=== PATIENT | female | born 1930 | race Caucasian/White ===

== ENCOUNTER 2017-08-28 14:07 | Emergency (ER) | payer MEDICARE ==
[~2017-08-28 14:07] MED LIST: ASPI81TA44 PO; CHOL20002 PO; FISH1CAP PO; MULT-658 PO; VALS80TA3 PO; WARF4TAB7 PO
--- NOTE | 2017-08-28 15:14 | EKG ---
[address] [address] Test Date: 2017-08-28 Test Time: 15:09:33 Pat Name: AKHIL HDEZ Department: Room: Gender: F Windows Admin: ROBERT : 1930 Requested By: LOLA LEAL Order Number: [id number] Reading MD: Measurements Intervals [place] Rate: 78 P: MS: QRS: 52 QRSD: 80 T: 41 QT: 388 QTc: 446 Interpretive Statements IRREGULAR RHYTHM, NO P-WAVE FOUND NO SPECIFIC ECG ABNORMALITIES RI6.01 Unconfirmed report No previous ECG available for comparison
--- NOTE | 2017-08-28 15:21 | RAD ---
Indication: Vomiting and abdominal pain. Time of exam 1513 hours. The heart appears to be significantly enlarged. Lungs are clear of acute infiltrates. The pulmonary vascularity is normal. No effusion or pneumothorax is seen. Impression: Cardiomegaly. No other significant abnormality is detected.
--- NOTE | 2017-08-28 15:24 | RAD ---
CT scan of the head without contrast 08/28/2017 Clinical History: Blurred vision.. Technique: Unenhanced, contiguous, 5 mm axial sections were obtained through the head. One or more of the following individualized dose reduction techniques were utilized for this study: 1. Automated exposure control. 2. Adjustment of the mA and/or kV according to patient size. 3. Use of iterative reconstruction technique. Findings: No previous studies are available for comparison. There is generalized parenchymal atrophy. Small scattered areas of decreased attenuation are seen within the periventricular and subcortical white matter of both cerebral hemispheres consistent with areas of small vessel ischemic disease. No acute parenchymal abnormality is seen. No extra-axial fluid collection is noted. Impression: No acute intracranial abnormality is seen.
[2017-08-28 15:56] LABS: BASO # 0.1 x10^3/uL (0.0-0.2); BASO % 1 % (0-3); EOS # 0.3 x10^3/uL (0.0-0.7); EOS % 5 % (0-3); HEMATOCRIT 39.2 % (36.0-47.0); HEMOGLOBIN 13.3 g/dL (12.0-15.5); LYMPH # 1.5 x10^3/uL (1.0-4.8); LYMPH % 24 % (24-48); MEAN CORPUSCULAR HEMOGLOBIN 32 pg (25-35); MEAN CORPUSCULAR HGB CONC 34 g/dL (31-37); MEAN CORPUSCULAR VOLUME 94 fL (79-100); MONO # 0.7 x10^3/uL (0.0-1.1); MONO % 11 % (0-9); NEUT # 3.7 x10^3uL (1.8-7.7); NEUT % 59 % (31-73); PLATELET COUNT 161 x10^3/uL (140-400); RED BLOOD COUNT 4.16 x10^6/uL (3.50-5.40); RED CELL DISTRIBUTION WIDTH 14.5 % (11.5-14.5); WHITE BLOOD COUNT 6.3 x10^3/uL (4.0-11.0)
[2017-08-28 16:10] LABS: ALBUMIN 3.4 g/dL (3.4-5.0); ALBUMIN/GLOBULIN RATIO 0.8 (1.0-1.7); CALCIUM 9.5 mg/dL (8.5-10.1); CREATININE 0.8 mg/dL (0.6-1.0); GFR 67.8; POTASSIUM 4.7 mmol/L (3.5-5.1); TOTAL BILIRUBIN 0.5 mg/dL (0.2-1.0); TOTAL PROTEIN 7.6 g/dL (6.4-8.2)
[2017-08-28 16:28] LABS: BILIRUBIN,URINE NEG (NEG); CLARITY,URINE CLEAR; COLOR,URINE YELLOW; GLUCOSE,URINE NEG (NEG)
[2017-08-28 16:29] LABS: BACTERIA,URINE 0 /HPF (0-FEW); NITRITE,URINE NEG (NEG); SQUAMOUS EPITHELIAL CELL,UR FEW /LPF; UROBILINOGEN,URINE 0.2 mg/dL (0.2 mg/dL)
--- NOTE | 2017-08-28 16:40 | PHYS DOC ---
Past History Past Medical History: A-Fib, Hypertension Past Surgical History: No Surgical History Smoking: Non-smoker Alcohol Use: None Drug Use: None Adult General Chief Complaint Chief Complaint: VISION PROBLEM HPI HPI 87-year-old female patient with history of atrial fibrillation on Coumadin complaining of sudden onset of seeing black spots in front of both of her eyes at 1345 intermittently that last about 50 minutes and resolved at arrival to ER. Patient denies headache, nausea, focal neuro deficit, fever and chills. Patient states she had the same problem 2 years ago and was told that it was related to her atrial fibrillation. Patient was treated recently for UTI and supposed to seen by her primary care physician today for repeat urine test. Review of Systems Review of Systems Constitutional: Denies fever or chills [] Eyes: Denies change in visual acuity, redness, or eye pain [] HENT: Denies nasal congestion or sore throat [] Respiratory: Denies cough or shortness of breath [] Cardiovascular: No additional information not addressed in HPI [] GI: Denies abdominal pain, nausea, vomiting, bloody stools or diarrhea [] : Denies dysuria or hematuria [] Musculoskeletal: Denies back pain or joint pain [] Integument: Denies rash or skin lesions [] Neurologic: Denies headache, focal weakness or sensory changes [] Endocrine: Denies polyuria or polydipsia [] All other systems were reviewed and found to be within normal limits, except as documented in this note. Allergies Allergies Allergies Coded Allergies Type Severity Reaction Last Updated Verified No Known Drug Allergies 05/21/14 No Physical Exam Physical Exam Constitutional: Well developed, well nourished, no acute distress, non-toxic appearance. [] HENT: Normocephalic, atraumatic, bilateral external ears normal, oropharynx moist, no oral exudates, nose normal. [] Eyes: PERRLA, EOMI, conjunctiva normal, no discharge. [] Neck: Normal range of motion, no tenderness, supple, no stridor. [] Cardiovascular:Irregularly irregular, no murmur [] Lungs & Thorax: Bilateral breath sounds clear to auscultation [] Abdomen: Bowel sounds normal, soft, no tenderness, no masses, no pulsatile masses. [] Skin: Warm, dry, no erythema, no rash. [] Back: No tenderness, no CVA tenderness. [] Extremities: No tenderness, no cyanosis, no clubbing, ROM intact, no edema. [] Neurologic: Alert and oriented X 3, normal motor function, normal sensory function, no focal deficits noted. [] Psychologic: Affect normal, judgement normal, mood normal. [] Current Patient Data Lab Results Laboratory Tests Test 08/28/17 15:00 White Blood Count 6.3 x10^3/uL (4.0-11.0) Red Blood Count 4.16 x10^6/uL (3.50-5.40) Hemoglobin 13.3 g/dL (12.0-15.5) Hematocrit 39.2 % (36.0-47.0) Mean Corpuscular Volume 94 fL (79-100) Mean Corpuscular Hemoglobin 32 pg (25-35) Mean Corpuscular Hemoglobin Concent 34 g/dL (31-37) Red Cell Distribution Width 14.5 % (11.5-14.5) Platelet Count 161 x10^3/uL (140-400) Neutrophils (%) (Auto) 59 % (31-73) Lymphocytes (%) (Auto) 24 % (24-48) Monocytes (%) (Auto) 11 % (0-9) H Eosinophils (%) (Auto) 5 % (0-3) H Basophils (%) (Auto) 1 % (0-3) Neutrophils # (Auto) 3.7 x10^3uL (1.8-7.7) Lymphocytes # (Auto) 1.5 x10^3/uL (1.0-4.8) Monocytes # (Auto) 0.7 x10^3/uL (0.0-1.1) Eosinophils # (Auto) 0.3 x10^3/uL (0.0-0.7) Basophils # (Auto) 0.1 x10^3/uL (0.0-0.2) Sodium Level 142 mmol/L (136-145) Potassium Level 4.7 mmol/L (3.5-5.1) Chloride Level 104 mmol/L (98-107) Carbon Dioxide Level 30 mmol/L (21-32) Anion Gap 8 (6-14) Blood Urea Nitrogen 21 mg/dL (7-20) H Creatinine 0.8 mg/dL (0.6-1.0) Estimated GFR (Cockcroft-Gault) 67.8 BUN/Creatinine Ratio 26 (6-20) H Glucose Level 85 mg/dL (70-99) Lactic Acid Level 1.4 mmol/L (0.4-2.0) Calcium Level 9.5 mg/dL (8.5-10.1) Total Bilirubin 0.5 mg/dL (0.2-1.0) Aspartate Amino Transferase (AST) 30 U/L (15-37) Alanine Aminotransferase (ALT) 28 U/L (14-59) Alkaline Phosphatase 124 U/L (46-116) H Troponin I Quantitative < 0.017 ng/mL (0-0.055) Total Protein 7.6 g/dL (6.4-8.2) Albumin 3.4 g/dL (3.4-5.0) Albumin/Globulin Ratio 0.8 (1.0-1.7) L EKG EKG [EKG interpreted by me. EKG at 1509 showed atrial fibrillation with rate of [address] and T wave abnormality] Radiology/Procedures Radiology/Procedures [] Course & Med Decision Making Course & Med Decision Making Pertinent Labs and Imaging studies reviewed. (See chart for details) Evaluation of patient in ER showed 87-year-old female patient with episodes of black spots in front of her eyes that resolved spontaneously. Patient had unremarkable physical exam except for chronic atrial fibrillation. CT head and chest x-ray was unremarkable. NIHS scale was 0. Labs was unremarkable except for INR of 2.6 and UTI. Plan to give prescription for UTI and instruction to follow with her primary care physician. [] Dragon Disclaimer Dragon Disclaimer This electronic medical record was generated, in whole or in part, using a voice recognition dictation system. Departure Departure: Impression: Primary Impression: Blurred vision, bilateral Additional Impressions: Urinary tract infection Atrial fibrillation Disposition: 01 HOME, SELF-CARE (At 1700) Condition: STABLE Referrals: CALE MCNEAL (PCP) Follow-up with your primary care physician in 2 or 3 days if not getting better Patient Instructions: Eye - Blurred Vision, Urinary Tract Infection Scripts Cephalexin (KEFLEX) 500 Mg Capsule 1 CAP PO TID, #21 CAP Prov: LOLA LEAL MD 08/28/17 Problem Qualifiers LOLA LEAL MD Aug 28, 2017 16:40
[2017-08-28] MEDS ORDERED: CEPH-264 PO (17:00)
[2017-08-28 17:25] VITALS: BP 154/75
== END 2017-08-28 17:25 | disposition home or self-care (01) ==
LOC: ER 14:07
DX: H53.8 Other visual disturbances (principal); N39.0 Urinary tract infection, site not specified; I48.91 Unspecified atrial fibrillation; I10 Essential (primary) hypertension; Z79.01 Long term (current) use of anticoagulants
CPT/HCPCS: 36415; 70450; 71010; 80053; 81001; 83605; 84484; 85025; 85610; 93005; 99285-25

== ENCOUNTER 2018-01-11 19:14 | Emergency (ER) | payer MEDICARE ==
[~2018-01-11] VITALS: Ht 165.1 cm; Wt 66.7 kg
[~2018-01-11 19:14] MED LIST changes: -ASPI81TA44 PO; +ASPI81TA59 PO; +CEPH-264 PO; +WARF4TAB64 PO; -WARF4TAB7 PO
--- NOTE | 2018-01-11 20:03 | ED.ADGEN ---
Past History Past Medical History: A-Fib, Cancer, High Cholesterol, Hypertension, Sciatica Past Surgical History: Hysterectomy, Other Smoking: Non-smoker Alcohol Use: None Drug Use: None Adult General Chief Complaint Chief Complaint R Leg pain and swelling HPI HPI Patient is a 87-year-old female presents with right leg pain tenderness and swelling which began several days ago and gradually progress. Patient has right leg swelling, approximately 20% larger than left. Denies injury. Denies ear, chills, nausea vomiting or rash. As pain, shortness of breath. No history of congestive heart failure. History of A. fib currently anticoagulated on Coumadin. Patient has not been evaluated for this complaint prior to today's ED visit.[] Review of Systems Review of Systems Review symptoms as per history of present illness. All other review symptoms are negative. [] All other systems were reviewed and found to be within normal limits, except as documented in this note. Allergies Allergies Allergies Coded Allergies Type Severity Reaction Last Updated Verified No Known Drug Allergies 05/21/14 No Physical Exam Physical Exam Constitutional: Well developed, well nourished, no acute distress, non-toxic appearance. [] HENT: Normocephalic, atraumatic, bilateral external ears normal, oropharynx moist, no oral exudates, nose normal. [] Eyes: PERRLA, EOMI, conjunctiva normal, no discharge. [] Neck: Normal range of motion, no tenderness, supple, no stridor. [] Cardiovascular:Heart rate regular rhythm, no murmur [] Lungs & Thorax: Bilateral breath sounds clear to auscultation [] Extremities: Right leg swelling, extending from foot to distal thigh, swelling approximately 20% greater than left. No rash, bruising. 2+ symmetric palpable pulses. [] Neurologic: Alert and oriented X 3, normal motor function, normal sensory function, no focal deficits noted. [] Psychologic: Affect normal, judgement normal, mood normal. [] Current Patient Data Vital Signs Vital Signs Date Time Temp Pulse Resp B/P (MAP) Pulse Ox O2 Delivery O2 Flow Rate FiO2 01/11/18 21:23 85 18 169/94 (119) 98 Room Air 01/11/18 19:32 97.8 Lab Results Laboratory Tests Test 01/11/18 19:55 White Blood Count 5.9 x10^3/uL (4.0-11.0) Red Blood Count 4.18 x10^6/uL (3.50-5.40) Hemoglobin 13.2 g/dL (12.0-15.5) Hematocrit 39.0 % (36.0-47.0) Mean Corpuscular Volume 93 fL (79-100) Mean Corpuscular Hemoglobin 32 pg (25-35) Mean Corpuscular Hemoglobin Concent 34 g/dL (31-37) Red Cell Distribution Width 14.2 % (11.5-14.5) Platelet Count 158 x10^3/uL (140-400) Neutrophils (%) (Auto) 50 % (31-73) Lymphocytes (%) (Auto) 32 % (24-48) Monocytes (%) (Auto) 14 % (0-9) H Eosinophils (%) (Auto) 4 % (0-3) H Basophils (%) (Auto) 1 % (0-3) Neutrophils # (Auto) 3.0 x10^3uL (1.8-7.7) Lymphocytes # (Auto) 1.9 x10^3/uL (1.0-4.8) Monocytes # (Auto) 0.8 x10^3/uL (0.0-1.1) Eosinophils # (Auto) 0.2 x10^3/uL (0.0-0.7) Basophils # (Auto) 0.0 x10^3/uL (0.0-0.2) Prothrombin Time 23.8 SEC (9.4-11.4) H Prothrombin Time INR 2.4 (0.9-1.1) H Sodium Level 141 mmol/L (136-145) Potassium Level 3.8 mmol/L (3.5-5.1) Chloride Level 105 mmol/L (98-107) Carbon Dioxide Level 29 mmol/L (21-32) Anion Gap 7 (6-14) Blood Urea Nitrogen 16 mg/dL (7-20) Creatinine 1.2 mg/dL (0.6-1.0) H Estimated GFR (Cockcroft-Gault) 42.5 BUN/Creatinine Ratio 13 (6-20) Glucose Level 95 mg/dL (70-99) Calcium Level 9.2 mg/dL (8.5-10.1) Total Bilirubin 0.6 mg/dL (0.2-1.0) Aspartate Amino Transferase (AST) 18 U/L (15-37) Alanine Aminotransferase (ALT) 24 U/L (14-59) Alkaline Phosphatase 107 U/L (46-116) JA-Ktc-N-Type Natriuretic Peptide 1549 pg/mL (0-449) H Total Protein 7.3 g/dL (6.4-8.2) Albumin 3.4 g/dL (3.4-5.0) Albumin/Globulin Ratio 0.9 (1.0-1.7) L EKG EKG [] Radiology/Procedures Radiology/Procedures [] Course & Med Decision Making Course & Med Decision Making Pertinent Labs and Imaging studies reviewed. (See chart for details) [Symptoms likely secondary to ruptured popliteal cyst and congestive heart failure. No shortness breath, orthopnea, chest pain. Recommendations are supportive care with cardiology follow-up. Patient will be prescribed 2 day course of Lasix.] Final Impression Final Impression [#1 right leg pain and swelling #2 ruptured popliteal cyst #3 CHF] Problems: Dragon Disclaimer Dragon Disclaimer This electronic medical record was generated, in whole or in part, using a voice recognition dictation system. REN CARTER DO January 11, 2018 20:03
[2018-01-11 20:18] LABS: BASO % 1 % (0-3); EOS # 0.2 x10^3/uL (0.0-0.7); EOS % 4 % (0-3); HEMOGLOBIN 13.2 g/dL (12.0-15.5); LYMPH # 1.9 x10^3/uL (1.0-4.8); LYMPH % 32 % (24-48); MEAN CORPUSCULAR HEMOGLOBIN 32 pg (25-35); MEAN CORPUSCULAR HGB CONC 34 g/dL (31-37); MEAN CORPUSCULAR VOLUME 93 fL (79-100); MONO # 0.8 x10^3/uL (0.0-1.1); MONO % 14 % (0-9); NEUT % 50 % (31-73); PLATELET COUNT 158 x10^3/uL (140-400); RED BLOOD COUNT 4.18 x10^6/uL (3.50-5.40); RED CELL DISTRIBUTION WIDTH 14.2 % (11.5-14.5); WHITE BLOOD COUNT 5.9 x10^3/uL (4.0-11.0)
[2018-01-11 20:34] LABS: ALBUMIN 3.4 g/dL (3.4-5.0); ALBUMIN/GLOBULIN RATIO 0.9 (1.0-1.7); CALCIUM 9.2 mg/dL (8.5-10.1); CREATININE 1.2 mg/dL (0.6-1.0); GFR 42.5; POTASSIUM 3.8 mmol/L (3.5-5.1); TOTAL BILIRUBIN 0.6 mg/dL (0.2-1.0); TOTAL PROTEIN 7.3 g/dL (6.4-8.2)
[2018-01-11 21:23] VITALS: BP 169/94
--- NOTE | 2018-01-11 21:29 | RAD ---
INDICATION: Right leg pain and swelling and redness. Symptoms began 3 days ago. TECHNIQUE: Grayscale, color-flow, and spectral waveform analysis was performed. No comparison is available. FINDINGS: All visualized vein segments are compressible with normal phasicity of waveform and augmentation. No thrombus on grayscale or color imaging is apparent. Within the right popliteal fossa there is a 3.2 cm x 4.1 cm x 1.6 cm apparent popliteal cyst. There is also fluid tapering from this site more inferiorly. This raises possibility of popliteal cyst and rupture. Clinical correlation with exam findings is suggested. Finding could also be unrelated nonspecific edema. IMPRESSION: 1. No evidence of deep vein thrombosis. 2. Apparent popliteal cyst, possibly with rupture or adjacent edema. Electronically signed by: Julio Morrison MD (01/11/2018 9:26 PM) [id number]
== END 2018-01-11 21:41 | disposition home or self-care (01) ==
LOC: ER 19:14
DX: M66.0 Rupture of popliteal cyst (principal); I11.0 Hypertensive heart disease with heart failure; I50.9 Heart failure, unspecified; I48.91 Unspecified atrial fibrillation; E78.00 Pure hypercholesterolemia, unspecified; Z79.01 Long term (current) use of anticoagulants
CPT/HCPCS: 36415; 80053; 83880; 85025; 85610; 93971; 99285-25

== ENCOUNTER 2018-01-17 19:24 | Emergency (ER) | payer MEDICARE ==
[~2018-01-17] VITALS: Ht 165.1 cm; Wt 67.0 kg
--- NOTE | 2018-01-17 19:28 | ED.ADGEN ---
Past History Past Medical History: A-Fib, Cancer, High Cholesterol, Hypertension, Sciatica Past Surgical History: Hysterectomy, Other Smoking: Non-smoker Alcohol Use: None Drug Use: None Adult General Chief Complaint Chief Complaint "....All sudden... I had bloody urine.. we where out shopping...".." I was just here last Friday... because of a Burks Cyst..." HPI HPI Patient is a 87 year old female who presents with above hx and complaints of hematuria. Pt. does complain of some dysuria with hematuria. Patient is on Coumadin. Patient normally follows with Dr. Engle. No change in meds other than did take some Tylenol today. Reportedly her INR was perfect last time was checked. Pt. had prior UTI. Could not take one drug for her UTI, last drug she was on was Cipro. Review of Systems Review of Systems Constitutional: Denies fever or chills [] Eyes: Denies change in visual acuity, redness, or eye pain [] HENT: Denies nasal congestion or sore throat [] Respiratory: Denies cough or shortness of breath [] Cardiovascular: No additional information not addressed in HPI [] GI: Denies abdominal pain, nausea, vomiting, bloody stools or diarrhea [] : Complaints of dysuria or hematuria [] Musculoskeletal: Denies back pain or joint pain [] Integument: Denies rash or skin lesions [] Neurologic: Denies headache, focal weakness or sensory changes [] Endocrine: Denies polyuria or polydipsia [] All other systems were reviewed and found to be within normal limits, except as documented in this note. Family History Family History Noncontributory Current Medications Current Medications Current Medications Medications (Trade) Dose Ordered Sig/Jimmy Start Time Stop Time Status Last Admin Dose Admin Amoxicillin/ Clavulanate Potassium (Augmentin 875/ 125mg) 1 tab 1X ONCE 01/17/18 21:00 01/17/18 21:01 DC 01/17/18 20:41 1 TAB Phenazopyridine HCl (Pyridium) 200 mg STK-MED ONCE 01/17/18 20:12 01/17/18 20:13 DC Sodium Chloride 1,000 ml @ 1,000 mls/hr Q1H 01/17/18 19:54 01/17/18 20:53 DC 01/17/18 20:16 1,000 MLS/HR Allergies Allergies Allergies Coded Allergies Type Severity Reaction Last Updated Verified No Known Drug Allergies 05/21/14 No Physical Exam Physical Exam Constitutional: mild distress, non-toxic appearance. [] HENT: Normocephalic, atraumatic, bilateral external ears normal, oropharynx moist, no oral exudates, nose normal. [] Eyes: PERRLA, EOMI, conjunctiva normal, no discharge. [] Neck: Normal range of motion, no tenderness, supple, no stridor. [] Cardiovascular:Heart rate regular rhythm, no murmur [] Lungs & Thorax: Bilateral breath sounds equal at apex on auscultation [] Abdomen: Bowel sounds normal, soft, supra pubic tenderness, no masses, no pulsatile masses. [] Old surgery scar. Skin: Warm, dry, no erythema, no rash. [] Poor turgor Back: No tenderness, no CVA tenderness. [] Extremities: No tenderness, no cyanosis, no clubbing, ROM intact, ankle edema. [ ]Arthritic changes. Neurologic: Alert and oriented X 3, normal motor function, normal sensory function, no focal deficits noted. [] Psychologic: Affect anxious, judgement normal, mood normal. [] Current Patient Data Vital Signs Vital Signs Date Time Temp Pulse Resp B/P (MAP) Pulse Ox O2 Delivery O2 Flow Rate FiO2 01/17/18 20:45 88 20 159/87 (111) 99 Room Air 01/17/18 19:40 98.5 Lab Results Laboratory Tests Test 01/17/18 19:40 White Blood Count 8.1 x10^3/uL (4.0-11.0) Red Blood Count 4.27 x10^6/uL (3.50-5.40) Hemoglobin 13.4 g/dL (12.0-15.5) Hematocrit 40.0 % (36.0-47.0) Mean Corpuscular Volume 94 fL (79-100) Mean Corpuscular Hemoglobin 31 pg (25-35) Mean Corpuscular Hemoglobin Concent 34 g/dL (31-37) Red Cell Distribution Width 14.4 % (11.5-14.5) Platelet Count 162 x10^3/uL (140-400) Neutrophils (%) (Auto) 65 % (31-73) Lymphocytes (%) (Auto) 22 % (24-48) L Monocytes (%) (Auto) 10 % (0-9) H Eosinophils (%) (Auto) 3 % (0-3) Basophils (%) (Auto) 1 % (0-3) Neutrophils # (Auto) 5.3 x10^3uL (1.8-7.7) Lymphocytes # (Auto) 1.8 x10^3/uL (1.0-4.8) Monocytes # (Auto) 0.8 x10^3/uL (0.0-1.1) Eosinophils # (Auto) 0.2 x10^3/uL (0.0-0.7) Basophils # (Auto) 0.1 x10^3/uL (0.0-0.2) Prothrombin Time 21.2 SEC (9.4-11.4) H Prothrombin Time INR 2.1 (0.9-1.1) H PTT 33 SEC (23-33) Urine Collection Type Unknown Urine Color Red Urine Clarity Hazy Urine pH 7.0 Urine Specific [place] 1.010 Urine Protein >100 mg/dl (NEG-TRACE) Urine Glucose (UA) Neg mg/dL (NEG) Urine Ketones (Stick) Trace mg/dL (NEG) Urine Blood Large (NEG) Urine Nitrite Pos (NEG) Urine Bilirubin Mod (NEG) Urine Urobilinogen Dipstick 1 mg/dL (0.2 mg/dL) Urine Leukocyte Esterase Large (NEG) Urine RBC Tntc /HPF (0-2) Urine WBC 5-10 /HPF (0-4) Urine Squamous Epithelial Cells Occ /LPF Urine Bacteria 0 /HPF (0-FEW) Sodium Level 140 mmol/L (136-145) Potassium Level 3.9 mmol/L (3.5-5.1) Chloride Level 102 mmol/L (98-107) Carbon Dioxide Level 30 mmol/L (21-32) Anion Gap 8 (6-14) Blood Urea Nitrogen 18 mg/dL (7-20) Creatinine 0.9 mg/dL (0.6-1.0) Estimated GFR (Cockcroft-Gault) 59.2 Glucose Level 117 mg/dL (70-99) H Calcium Level 9.2 mg/dL (8.5-10.1) Total Bilirubin 0.7 mg/dL (0.2-1.0) Direct Bilirubin 0.2 mg/dL (0.0-0.2) Aspartate Amino Transferase (AST) 22 U/L (15-37) Alanine Aminotransferase (ALT) 27 U/L (14-59) Alkaline Phosphatase 114 U/L (46-116) Total Protein 7.6 g/dL (6.4-8.2) Albumin 3.5 g/dL (3.4-5.0) EKG EKG [] Course & Med Decision Making Course & Med Decision Making Pertinent Labs and Imaging studies reviewed. (See chart for details) Push Vit. C drinks. Augmentin 875 twice a day. x. 7 days. Must follow up urine cultures. May need change in antibiotics. Tylenol for pain. Return if any concerns. Follow up with primary. [] Final Impression Final Impression 1. Hematuria 2. Dysuria 3. UTI 4. Recent Burks Cyst dx. Dragon Disclaimer Dragon Disclaimer This electronic medical record was generated, in whole or in part, using a voice recognition dictation system. GRAHAM PAZ MD January 17, 2018 19:27
[2018-01-17] MEDS ORDERED: AMOXICILLIN/K CLAV 875/125MG TABLET. PO ONE ×2 (19:30→21:00)
[2018-01-17] MEDS ORDERED: AMOX1TAB61 PO (19:32)
[2018-01-17] MEDS ORDERED: HYDR-79 PO (19:32)
[2018-01-17] MEDS ORDERED: IV NORMAL SALINE 1,000ML 1,000 ML IV SCH (19:54)
[2018-01-17 20:09] LABS: BASO # 0.1 x10^3/uL (0.0-0.2); BASO % 1 % (0-3); EOS # 0.2 x10^3/uL (0.0-0.7); EOS % 3 % (0-3); HEMOGLOBIN 13.4 g/dL (12.0-15.5); LYMPH # 1.8 x10^3/uL (1.0-4.8); LYMPH % 22 % (24-48); MEAN CORPUSCULAR HEMOGLOBIN 31 pg (25-35); MEAN CORPUSCULAR HGB CONC 34 g/dL (31-37); MEAN CORPUSCULAR VOLUME 94 fL (79-100); MONO # 0.8 x10^3/uL (0.0-1.1); MONO % 10 % (0-9); NEUT # 5.3 x10^3uL (1.8-7.7); NEUT % 65 % (31-73); PLATELET COUNT 162 x10^3/uL (140-400); RED BLOOD COUNT 4.27 x10^6/uL (3.50-5.40); RED CELL DISTRIBUTION WIDTH 14.4 % (11.5-14.5); WHITE BLOOD COUNT 8.1 x10^3/uL (4.0-11.0)
[2018-01-17] MEDS ORDERED: PHENAZOPYRIDINE 200 MG TABLET. ONE (20:12)
[2018-01-17] MEDS ORDERED: PHENAZOPYRIDINE 200 MG TABLET. PO ONE (20:15)
[2018-01-17 20:23] LABS: ALBUMIN 3.5 g/dL (3.4-5.0); CALCIUM 9.2 mg/dL (8.5-10.1); CREATININE 0.9 mg/dL (0.6-1.0); DIRECT BILIRUBIN 0.2 mg/dL (0.0-0.2); GFR 59.2; POTASSIUM 3.9 mmol/L (3.5-5.1); TOTAL BILIRUBIN 0.7 mg/dL (0.2-1.0); TOTAL PROTEIN 7.6 g/dL (6.4-8.2)
[2018-01-17 20:27] LABS: CLARITY,URINE HAZY; COLOR,URINE RED
[2018-01-17 20:28] LABS: BACTERIA,URINE 0 /HPF (0-FEW); BILIRUBIN,URINE MOD (NEG); GLUCOSE,URINE NEG (NEG); NITRITE,URINE POS (NEG); RBC,URINE TNTC /HPF (0-2); SQUAMOUS EPITHELIAL CELL,UR OCC /LPF; UROBILINOGEN,URINE 1 mg/dL (0.2 mg/dL)
[2018-01-17 20:45] VITALS: BP 159/87
== END 2018-01-17 21:05 | disposition home or self-care (01) ==
LOC: ER 19:24
DX: N39.0 Urinary tract infection, site not specified (principal); I48.91 Unspecified atrial fibrillation; E78.00 Pure hypercholesterolemia, unspecified; I10 Essential (primary) hypertension; Z87.440 Personal history of urinary (tract) infections; Z79.01 Long term (current) use of anticoagulants
CPT/HCPCS: 36415; 80048; 80076; 81001; 85025; 85610; 85730; 87086; 99285-25; J7030

== ENCOUNTER → 2018-03-24 | Outpatient (CLI) | payer MEDICARE ==
[~2018-03-24] MED LIST changes: +AMOX1TAB61 PO; +HYDR-79 PO
--- NOTE | 2018-03-24 11:13 | RAD ---
INDICATION: Ruptured popliteal cyst. TECHNIQUE: 2 views of the right knee are submitted for review. No comparison is available. FINDINGS: There is no fracture or dislocation. There is no joint effusion or soft tissue swelling. There is minimal spurring in the lateral compartment. There is minimal spurring in the patellofemoral compartment. There is no compartmental narrowing. There are vascular calcifications. IMPRESSION: 1. Negative for an acute fracture or dislocation. 2. Minimal degenerative changes. Electronically signed by: Julio Morrison MD (03/24/2018 11:10 AM) [facility]
== END | disposition home or self-care (01) ==
LOC: PMG 10:22
PROVIDERS: ATTEND Physician Assistant
DX: M17.11 Unilateral primary osteoarthritis, right knee (principal); M66.0 Rupture of popliteal cyst; I11.0 Hypertensive heart disease with heart failure; I50.9 Heart failure, unspecified; E78.00 Pure hypercholesterolemia, unspecified
CPT/HCPCS: 73560

== ENCOUNTER → 2019-07-01 | Outpatient (CLI) | payer MEDICARE ==
[~2019-07-01] MED LIST changes: -CHOL20002 PO; +CHOL200059 PO; +HYDR-1179 PO; -HYDR-79 PO
--- NOTE | 2019-07-01 10:30 | RAD ---
EXAM: Lumbar spine, 5 views. HISTORY: Pain. COMPARISON: None. FINDINGS: 5 views of the lumbar spine are obtained. There is S-shaped thoracolumbar scoliosis with levocurvature centered at L3. There is mild retrolisthesis of L1 on L2 and L2 on L3 and grade 1 listhesis of L5 on S1. There is degenerative endplate remodeling with disc space narrowing and facet arthropathy at all levels. IMPRESSION: 1. Multilevel degenerative change throughout the lumbar spine. 2. Thoracolumbar scoliosis and mild listhesis at the aforementioned levels. Electronically signed by: Luci Chong MD (07/01/2019 10:27 AM) [id number]
== END | disposition home or self-care (01) ==
LOC: DXRAD 09:53
PROVIDERS: ATTEND Physician Assistant
DX: M47.816 Spondylosis without myelopathy or radiculopathy, lumbar region (principal); M48.061 Spinal stenosis, lumbar region without neurogenic claudication; M41.85 Other forms of scoliosis, thoracolumbar region; M53.85 Other specified dorsopathies, thoracolumbar region; M53.88 Other specified dorsopathies, sacral and sacrococcygeal region; M12.88 Other specific arthropathies, not elsewhere classified, other specified site
CPT/HCPCS: 72110